=== PATIENT | male | born 1960 | race Caucasian/White ===

== ENCOUNTER 2021-01-20 08:09 | Emergency (ER) | payer BC ==
[~2021-01-20] VITALS: Ht 172.7 cm; Wt 97.5 kg
[~2021-01-20 08:09] MED LIST: LEVOTHYROXINE25 MCG; LORTAB 7.5-3251 EACH PO
[2021-01-20] MEDS ORDERED: GABAPENTIN300 MG PO (08:24)
[2021-01-20] MEDS ORDERED: LEVOTHYROXINE100 MCG PO (08:24)
[2021-01-20] MEDS ORDERED: VENTOLIN HFA18 GM INH (11:32)
--- NOTE | 2021-01-21 13:57 | EKG ---
[facility] [address] [facility] [place] [address] Signed Normal sinus rhythm Incomplete right bundle branch block Borderline ECG No previous ECGs available Confirmed by JHONNY MURGUIA MD ([id number] on 01/21/2021 1:57:27 PM Electronically Signed By: JHONNY MURGUIA MD 01/21/21 1357 PATIENT NAME: MIGUELINA MONDRAGON Electrocardiogram DATE OF : 60 PHYSICIAN: JHONNY MURGUIA MD REPORT #: [id number] REPORT IS CONFIDENTIAL AND NOT TO BE RELEASED WITHOUT AUTHORIZATION
== END 2021-01-20 11:55 | disposition home or self-care (01) ==
LOC: ED 08:09
DX: U07.1 COVID-19 (principal); Z79.899 Other long term (current) drug therapy
CPT/HCPCS: 71045; 80053; 80500; 84484; 85025; 93005; 93010; 99285-25; C9803; M0243; Q0244; U0003